=== PATIENT | female | born 1970 | race Caucasian/White ===

== ENCOUNTER → 2024-06-18 15:39 | Outpatient (REF) | payer OTHER, SELFPAY | LOC: WDC 15:39 | PROVIDERS: ATTENDING PHYSICIAN Physician Assistant Medical | DX: Z12.31 Encounter for screening mammogram for malignant neoplasm of breast (principal) | CPT/HCPCS: 77063; 77067 ==

== ENCOUNTER → 2025-06-23 06:41 | Outpatient (REF) | payer OTHER, SELFPAY | LOC: WDC 06:41 | PROVIDERS: ATTENDING PHYSICIAN Physician Assistant Medical | DX: Z12.31 Encounter for screening mammogram for malignant neoplasm of breast (principal) | CPT/HCPCS: 77063; 77067 ==

== ENCOUNTER 2025-08-31 06:30 | Day surgery (SDC) | payer OTHER, SELFPAY ==
[2025-08-31 07:29] LABS: Glucose - Point of Care 89 mg/dl (70-99)
== END 2025-08-31 09:04 | disposition home or self-care (01) ==
LOC: GI 06:30
PROVIDERS: ATTENDING PHYSICIAN Internal Medicine
DX: R19.4 Change in bowel habit (principal); K64.9 Unspecified hemorrhoids; E10.9 Type 1 diabetes mellitus without complications; K63.89 Other specified diseases of intestine
CPT/HCPCS: 45380; 82962; 88305; 88342